=== PATIENT | female | born 1960 | race Caucasian/White ===

== ENCOUNTER → 2016-10-07 | Outpatient (CLI) | payer OTHER, MEDICAID ==
[2015-08-14 17:02] VITALS: BP 108/67
== END ==
LOC: RAD 10:36 → MERGE 10:36
PROVIDERS: ATTEND Internal Medicine
DX: Z12.31 Encounter for screening mammogram for malignant neoplasm of breast (principal)
CPT/HCPCS: 77067

== ENCOUNTER 2019-10-05 13:05 | Inpatient (IN) ==
[2019-10-05 13:15] VITALS: BMI 28.3
[2019-10-05] MEDS ORDERED: DIPRIVAN VIAL ONE (13:44)
[2019-10-05] MEDS ORDERED: DECADRON INJ ONE (13:44)
[2019-10-05] MEDS ORDERED: ZOFRAN INJ 4 MG VIAL ONE (13:44)
[2019-10-05] MEDS ORDERED: XYLOCAINE 1 % (PLAIN) ONE (13:44)
[2019-10-05] MEDS ORDERED: VERSED ONE (13:44)
[2019-10-05] MEDS ORDERED: NORCURON INJ 10 MG VIAL ONE (13:44)
[2019-10-05] MEDS ORDERED: TORADOL 30 MG VIAL IM ONE (14:58)
[2019-10-05] MEDS ORDERED: TORADOL 30 MG VIAL ONE (14:59)
[2019-10-05] MEDS ORDERED: MORPHINE SULFATE INJ 2 MG INJ IVP ONE ×2 (15:03→17:23)
[2019-10-05] MEDS ORDERED: TORADOL 30 MG VIAL IVP ONE (15:04)
[2019-10-05] MEDS ORDERED: MORPHINE SULFATE INJ 2 MG INJ ONE ×2 (15:05→17:25)
--- NOTE | 2019-10-05 15:54 | DR.EXTPAIN ---
HPI Time seen Time Seen by Provider: 10/05/19 14:57 PCP Primary Care Physician: FAM HPI Comment HPI Comment: Patient had sudden onset of pain and blood per rectum when she moved her bowels 10 hours ago. The pain continues and she feels a mass prolapsi ng through her anus. Denies any hx of hemorrhoids or rectal bleeding or pain in the past. Complaint/Symptoms Chief Complaint:: PT STATES THAT YESTERDAY WHEN SHE HAD BM SHE WIPED SHE NOTICED BRIGHT RED BLOOD. THIS MORNING SHE NOTICED THE HEMORROHOID ON THE OUTSIDE AND HAD SEVERE PAIN. Self Treatment fo Chief Complaint: TYELNOL #4 AROUND 8 THIS MORNING WITH NO RELIEF Nurses notes reviewed Nurses Notes Review: Yes Source History Provided: Patient Mode of arrival Mode of Arrival: Ambulatory Timing Onset of Chief Complaint: 10/05/19 Context History of: None Associated signs and symptoms Associated Signs and Symptoms: None PMH PMH Past Medical History: Yes Past Medical History: Hypertension and Seizures Past Medical History Comment: CHRONIC PAIN SYNDROME Past Surgical History: Yes Surgical History: Hysterectomy and Ortho Surgery Family History History of Family Medical Conditions: Yes Family Medical History: Cancer and Hypertension Social History Does patient currently use any type of tobacco product: Yes Have you used tobacco products in the last 12 months: No Type of Tobacco Use: None Does any household member use tobacco: No Alcohol Use: None Do you use any recreational Drugs:: Yes (MARIJUANA) Lives With: Family Lives Where: Home Infectious screening In the last 2 months have you had wt loss of >10#?: NO Have you had fever, night sweats or hemotysis?: No Have you traveled outside the country in the last 6 months?: No Isolation: Standard ROS Review of Systems Constitutional: No Symptoms Reported Eyes: No Symptoms Reported ENTM: No Symptoms Reported Respiratoy: No Symptoms Reported Cardiovascular: No Symptoms Reported Gastrointestinal/Abdominal: See HPI Genitourinary: No Symptoms Reported Neurological: No Symptoms Reported Musculoskeletal: No Symptoms Reported Integumentary: No Symptoms Reported Hematologic/Lymphatic: No Symptoms Reported Endocrine: No Symptoms Reported Psychiatric: No Symptoms Reported All Other Systems: Reviewed and Negative PE Vital Signs Vitals: Temperature 97.0 F Pulse Rate 72 Respiratory Rate 18 Blood Pressure [Left Arm] 175/84 Blood Pressure [Left Arm] 136/88 Blood Pressure 117/56 O2 Sat by Pulse Oximetry 100 General Limitations: No Limitations General Appearance: Alert and In No Apparent Distress Head Head Exam: Normal Inspection Eyes Eye exam: Normal Appearance ENT ENT Exam: Normal Exam Neck Neck Exam: Normal Inspection Chest Chest Inspection: Normal Inspection Respiratory Respiratory Exam: Normal Lung Sounds Bilat Cardiovascular Cardiovascular Exam: Regular Rate and Normal Rhythm Abdominal Exam Abdominal Exam: Normal Inspection, Normal Bowel Sounds, Soft and Other (1cm x 1cm exquisitely tender mass visualized prolapsed through the rectum. ); negative Distention, Tenderness, Guarding, Rebound and Rigidity Extremities Extremities Exam: Normal Inspection Back Back Exam: Normal Inspection Neurological Neurological Exam: Alert, Oriented X3 and CN II-XII Intact Psychiatric Psychiatric Exam: Normal Affect and Normal Mood Skin Skin Exam: Warm, Dry, Intact and Normal Color COURSE Treatment Treatment: Findings consistent with thrombosed hemorrhoid. Due to exquisite pain and acuteness of onset, asked surgery nutrition tech to evaluate. Analgesia given, but patient was in pain again in an hour. Discussed the case with Dr. Shah and he agreed to admit the patient for pain control and hemorrhoidectomy in AM. Reevaluation 1st: Improved ROR Labs Reviewed Laboratory: SARS-CoV-2 (PCR) Negative (NEGATIVE) 10/05/19 17:07 EKG [place]: Normal Rhythm: NSR Block: None Hypertrophy: None ST: Normal Opioid Opioid Risk Tool Total: 0 Total Score Risk Category: Low Risk Copyright: Phani BANKS predicting aberrant behaviors Diagnosis Discharge Problem: Hemorrhoid prolapse, Intractable pain
[2019-10-05] MEDS ORDERED: TYLENOL 325 MG TAB PO PRN (19:01)
[2019-10-05 19:23] LABS: BASOPHILS # (AUTO) 0.1 X10^3/uL (0.0-0.1); BASOPHILS % (AUTO) 1.1 % (0.2-1.0); EOSINOPHILS # (AUTO) 0.7 x10^3/uL (0.0-0.2); EOSINOPHILS % (AUTO) 6.9 % (0.9-2.9); HEMATOCRIT 40.9 % (36.0-47.0); HEMOGLOBIN 13.6 g/dL (12.0-16.0); LYMPHOCYTES # (AUTO) 2.2 X10^3/uL (1.3-2.9); LYMPHOCYTES % (AUTO) 22.4 % (21.0-51.0); MEAN CORPUSCULAR HEMOGLOBIN 29.6 pg (27.0-34.0); MEAN CORPUSCULAR HGB CONC 33.4 g/dL (33.0-35.0); MEAN CORPUSCULAR VOLUME 88.7 fL (80.0-100.0); MONOCYTES # (AUTO) 0.5 x10^3/uL (0.3-0.8); MONOCYTES % (AUTO) 4.7 % (0.0-13.0); NEUTROPHILS # (AUTO) 6.3 x10^3/uL (2.2-4.8); NEUTROPHILS % (AUTO) 64.9 % (42.0-75.0); PLATELET COUNT 315 X10^3/uL (150.0-450.0); RED BLOOD COUNT 4.61 X10^6/uL (3.5-5.4); RED CELL DISTRIBUTION WIDTH 13.9 % (11.6-16.5); WHITE BLOOD COUNT 9.8 X10^3/uL (3.6-10.0)
[2019-10-05 19:44] LABS: METAMYELOCYTES % 1; PLATELET MORPHOLOGY COMMENT NORMAL (NORMAL)
--- NOTE | 2019-10-05 19:44 | RAD ---
HISTORYPRE-OP: HEMORRHOIDSTUDYCHEST, 1 VIEWCOMPARISONNone availableFINDINGSThe trachea is midline. The cardiac silhouette is unremarkable . The lungs demonstrate interstitial coarsening, upper lobe predominant increased lucency and hyperexpansion which are consistent with changes associated with COPD.IMPRESSIONCOPD without acute cardiopulmonary abnormality.Electronically signed by: KEO ABDI (Oct 05, 2019 19:43:23)
[2019-10-05] MEDS ORDERED: LAMOTRIGINE 150 MG PO SCH (21:00)
[2019-10-05] MEDS ORDERED: PHENYTOIN SODIUM 100 MG PO SCH (21:00)
[2019-10-05] MEDS: DILANTIN CAP 100 MG EXT REL PO SCH (22:05)
[2019-10-05] MEDS: FLEXERIL TAB 10 MG PO SCH (22:06)
[2019-10-05] MEDS: LAMICTAL TAB 100 MG PO SCH (22:06)
[2019-10-05] MEDS: LOPRESSOR TAB 50 MG PO SCH (22:07)
[2019-10-05] MEDS ORDERED: NS 1000 ML 1,000 ML ONE (22:13)
[2019-10-05] MEDS: XANAX PO PRN (22:17)
[2019-10-05] MEDS: NEURONTIN CAP 400 MG PO SCH (22:17)
[2019-10-05] MEDS: MORPHINE SULFATE INJ 2 MG INJ IVP PRN (23:46)
[2019-10-05] MEDS ORDERED: NS 1000 ML 1,000 ML IV SCH (23:55)
[2019-10-06] MEDS: NEURONTIN CAP 400 MG PO SCH ×2 (05:16→13:46)
[2019-10-06] MEDS: MORPHINE SULFATE INJ 2 MG INJ IVP PRN (06:01)
[2019-10-06 06:17] LABS: BASOPHILS % (AUTO) 0.4 % (0.2-1.0); BLOOD UREA NITROGEN 16 mg/dL (7-18); CALCIUM 8.4 mg/dL (8.5-10.1); CARBON DIOXIDE 31.2 mmol/L (21-32); CHLORIDE 104 mmol/L (98-107); CREATININE 0.79 mg/dL (0.55-1.02); EOSINOPHILS # (AUTO) 0.6 x10^3/uL (0.0-0.2); EOSINOPHILS % (AUTO) 7.9 % (0.9-2.9); HEMATOCRIT 37.2 % (36.0-47.0); HEMOGLOBIN 12.4 g/dL (12.0-16.0); LYMPHOCYTES # (AUTO) 1.8 X10^3/uL (1.3-2.9); LYMPHOCYTES % (AUTO) 26.1 % (21.0-51.0); MEAN CORPUSCULAR HEMOGLOBIN 29.6 pg (27.0-34.0); MEAN CORPUSCULAR HGB CONC 33.3 g/dL (33.0-35.0); MEAN CORPUSCULAR VOLUME 88.8 fL (80.0-100.0); MEAN PLATELET VOLUME 7.8 fL (7.4-11.0); MONOCYTES # (AUTO) 0.5 x10^3/uL (0.3-0.8); NEUTROPHILS # (AUTO) 4.1 x10^3/uL (2.2-4.8); NEUTROPHILS % (AUTO) 58.6 % (42.0-75.0); PLATELET COUNT 283 X10^3/uL (150.0-450.0); RED BLOOD COUNT 4.19 X10^6/uL (3.5-5.4); RED CELL DISTRIBUTION WIDTH 13.9 % (11.6-16.5); SODIUM 140 mmol/L (136-145); eGFR NON BLACK RACES > 60 (>60)
[2019-10-06] MEDS ORDERED: NORVASC TAB 10 MG PO SCH (09:00)
[2019-10-06] MEDS ORDERED: HYDROCHLOROTHIAZIDE 25 MG TAB PO SCH (09:00)
[2019-10-06] MEDS ORDERED: HCTZ 25 MG PO SCH (09:00)
[2019-10-06] MEDS ORDERED: CYMBALTA PO SCH (09:00)
[2019-10-06] MEDS ORDERED: FENTANYL INJ 100 mcg ONE (10:52)
[2019-10-06] MEDS ORDERED: DECADRON INJ ONE (10:52)
[2019-10-06] MEDS ORDERED: NS 1000 ML 1,000 ML ONE ×2 (10:53→11:23)
[2019-10-06] MEDS ORDERED: BETADINE SOLN ONE (11:07)
[2019-10-06] MEDS ORDERED: XYLOCAINE 1 % (PLAIN) ONE (11:07)
[2019-10-06] MEDS ORDERED: ANCEF 1 GRAM IV PREMIX* 1 G/50 ML BAG IV ONE (11:28)
[2019-10-06] MEDS ORDERED: MARCAINE/EPINEPHRINE ONE (11:52)
[2019-10-06] MEDS ORDERED: ZOFRAN INJ 4 MG VIAL IVP PRN (12:46)
[2019-10-06] MEDS ORDERED: REGLAN INJ 10 MG VIAL IVP PRN (12:46)
[2019-10-06] MEDS ORDERED: DILAUDID INJ IVP PRN (12:46)
[2019-10-06] MEDS ORDERED: BENADRYL INJ 50 MG VIAL IVP PRN (12:46)
[2019-10-06] MEDS ORDERED: PHENERGAN INJ 25 MG IM PRN (12:46)
[2019-10-06] MEDS ORDERED: BETADINE SOLN TOP ONE (13:25)
[2019-10-06] MEDS: XANAX PO PRN (13:45)
[2019-10-06] MEDS: FLEXERIL TAB 10 MG PO SCH (13:46)
[2019-10-06] MEDS: DILANTIN CAP 100 MG EXT REL PO SCH (13:46)
[2019-10-06] MEDS: LOPRESSOR TAB 50 MG PO SCH (13:47)
[2019-10-06] MEDS: LAMICTAL TAB 100 MG PO SCH (13:47)
[2019-10-06 15:14] VITALS: BP 157/78
== END 2019-10-06 14:10 | disposition home or self-care (01) | DRG 349 ==
LOC: ER 13:08 → MED/SURG 18:17
PROVIDERS: ADMIT Surgery; ATTEND Surgery
DX: K62.89 Other specified diseases of anus and rectum; J44.9 Chronic obstructive pulmonary disease, unspecified; I10 Essential (primary) hypertension; K64.8 Other hemorrhoids; Z11.59 Encounter for screening for other viral diseases
CPT/HCPCS: 36415; 71010; 71045; 80048; 85025; 87635; 93005; 96365; 96374; 96375; 99284; A4222; J0690; J1100; J1885; J2250; J2270; J2405; J2704; J3010; J3490; J7030; S0020

== ENCOUNTER 2022-05-18 18:27 | Observation (INO) ==
[2022-05-18 18:42] VITALS: BMI 29.2
--- NOTE | 2022-05-18 18:44 | DR.EXTPAIN ---
HPI Time seen Time Seen by Provider: 05/18/22 18:44 PCP Primary Care Physician: caldwell Complaint/Symptoms Chief Complaint:: pt had a procedure done today by Dr Vaca pt's rt thigh is swollen and tight very painful 01/19 COVID-19 Coronavirus risk:travel/contact w/high risk person: No Has patient experienced Coronavirus symptoms: No Source History Provided: Patient Mode of arrival Mode of Arrival: EMS Timing Onset of Chief Complaint: 05/18/22 PMH PMH Past Medical History: Yes Past Medical History: Depression, GERD, Hypertension and Seizures Past Surgical History: Yes Surgical History: Hysterectomy and Ortho Surgery Past Surgical History Comment: atherectomy aortogram Family History History of Family Medical Conditions: Yes Family Medical History: Diabetes Mellitus, Cancer, [place], Coronary Artery Disease and Hypertension Social History Type of Tobacco Use: Cigarettes Do you use any recreational Drugs:: No Lives Where: Home Travel Risk Coronavirus risk:travel/contact w/high risk person: No Has patient experienced Coronavirus symptoms: No Infectious screening In the last 2 months have you had wt loss of >10#?: NO Have you had fever, night sweats or hemotysis?: No Have you traveled outside the country in the last 6 months?: No Isolation: Standard PE Vital Signs Vitals: Temperature 97.8 F Pulse Rate 85 Respiratory Rate 18 Blood Pressure [Left Arm] 132/70 Blood Pressure [Left Arm] 136/88 Blood Pressure 143/78 O2 Sat by Pulse Oximetry 100 ROR Labs Reviewed Result Diagrams: 05/19/22 05:33 Laboratory: WBC 9.6 X10^3/uL (3.6-10.0) 05/18/22 18:46 RBC 3.87 X10^6/uL (3.5-5.4) 05/18/22 18:46 Hgb 11.7 g/dL (12.0-16.0) L 05/18/22 18:46 Hct 34.8 % (36.0-47.0) L 05/18/22 18:46 MCV 89.9 fL (80.0-100.0) 05/18/22 18:46 MCH 30.2 pg (27.0-34.0) 05/18/22 18:46 MCHC 33.6 g/dL (33.0-35.0) 05/18/22 18:46 RDW 13.6 % (11.6-16.5) 05/18/22 18:46 Plt Count 333 X10^3/uL (150.0-450.0) 05/18/22 18:46 MPV 8.0 fL (7.4-11.0) 05/18/22 18:46 Neut % (Auto) 86.3 % (42.0-75.0) H 05/18/22 18:46 Lymph % (Auto) 10.1 % (21.0-51.0) L 05/18/22 18:46 [place] % (Auto) 3.1 % (0.0-13.0) 05/18/22 18:46 Eos % (Auto) 0.1 % (0.9-2.9) L 05/18/22 18:46 Baso % (Auto) 0.4 % (0.2-1.0) 05/18/22 18:46 Neut # (Auto) 8.3 x10^3/uL (2.2-4.8) H 05/18/22 18:46 Lymph # (Auto) 1.0 X10^3/uL (1.3-2.9) L 05/18/22 18:46 [place] # (Auto) 0.3 x10^3/uL (0.3-0.8) 05/18/22 18:46 Eos # (Auto) 0.0 x10^3/uL (0.0-0.2) 05/18/22 18:46 Baso # (Auto) 0.0 X10^3/uL (0.0-0.1) 05/18/22 18:46 Absolute Nucleated RBC 0.0 /100WBC 05/18/22 18:46 Opioid Opioid Risk Tool Age (Tony box if 16-45): No History of Preadolescent Sexual Abuse: No Total: 0 Total Score Risk Category: Low Risk Copyright: Phani BANKS predicting aberrant behaviors Discharge Plan Discharge Plan Patient Disposition: ADMITTED INPATIENT Condition: Stable Prescription drug monitoring program results: PDMP reviewed with concerns identified Orders to Discharge Patient Discharge Orders: Discharge (Routine); Ordered 05/19/22 Ordered By: Cristi Vaca
[2022-05-18 18:58] LABS: BASOPHILS % (AUTO) 0.4 % (0.2-1.0); EOSINOPHILS % (AUTO) 0.1 % (0.9-2.9); HEMATOCRIT 34.8 % (36.0-47.0); HEMOGLOBIN 11.7 g/dL (12.0-16.0); LYMPHOCYTES % (AUTO) 10.1 % (21.0-51.0); MEAN CORPUSCULAR HEMOGLOBIN 30.2 pg (27.0-34.0); MEAN CORPUSCULAR HGB CONC 33.6 g/dL (33.0-35.0); MEAN CORPUSCULAR VOLUME 89.9 fL (80.0-100.0); MONOCYTES # (AUTO) 0.3 x10^3/uL (0.3-0.8); MONOCYTES % (AUTO) 3.1 % (0.0-13.0); NEUTROPHILS # (AUTO) 8.3 x10^3/uL (2.2-4.8); NEUTROPHILS % (AUTO) 86.3 % (42.0-75.0); RED BLOOD COUNT 3.87 X10^6/uL (3.5-5.4); RED CELL DISTRIBUTION WIDTH 13.6 % (11.6-16.5); WHITE BLOOD COUNT 9.6 X10^3/uL (3.6-10.0)
[2022-05-18] MEDS ORDERED: NS 1,000 ML IV 1,000 ML ONE (19:24)
[2022-05-18] MEDS ORDERED: DILAUDID INJ ONE (22:03)
[2022-05-18] MEDS: DILAUDID INJ IVP PRN (22:11)
[2022-05-18] MEDS ORDERED: IMITREX TAB PO PRN (23:05)
[2022-05-18] MEDS ORDERED: PERCOCET TAB 5/325 MG PO PRN (23:10)
--- NOTE | 2022-05-18 23:43 | DR.H&P ---
H&P History & Physical for Day of: H&P Date: 05/18/22 Chief Complaint Chief Complaint: Pain in right thigh, acute onset the evening of admission , having had left popliteal atherectomy and drug coated balloon angioplasty via a right femoral artery stick earlier in the day. Allergies Allergies Allergy/AdvReac Type Severity Reaction Status Date / Time Penicillins Allergy Mild hives/rash Verified 12/29/21 08:31 History of Present Illness History of Present Illness: As of the chief complaint above, the patient had closure of the right femoral artery puncture with an Angioseal device. She had no problems post op until about 12 hours later when she went to the bathroom and had acute onset of swelling and burning pain in the right thigh. Past Medical History Past Medical History: CVA (history of and no custodial deficit), Depression, GERD, Hypertension, PUD and Seizures Additional Medical History: chronic pain Past Surgical History Surgical History: Cholecystectomy, Hysterectomy and Ortho Surgery Family History Family Medical History: Cancer Social History Have you used tobacco products in the last 12 months: Yes Type of Tobacco Use: Cigarettes How many years tobacco product used: 45 Alcohol Use: None Drug Use: None Medications Home Medications: Penicillins Allergy (Mild, Verified 12/29/21 08:31) hives/rash CONTINUE taking the following medications bupropion HCl 150 mg 24 hr tablet, extended release 150 mg PO QAM 05/18/22 [H istory] cyclobenzaprine 10 mg tablet 10 mg PO QPM 05/18/22 [History] diazepam 5 mg tablet 5 mg PO QDAY PRN 05/18/22 [History] duloxetine 60 mg capsule,delayed release 60 mg PO QDAY 05/18/22 [History] famotidine 40 mg tablet 40 mg PO BID 05/18/22 [History] gabapentin 600 mg tablet 600 mg PO TID 05/18/22 [History] hydrocodone 5 mg-acetaminophen 325 mg tablet 1 tab PO TID PRN 05/18/22 [History] lamotrigine 25 mg tablet 50 mg PO BID 05/18/22 [History] meloxicam 15 mg tablet 15 mg PO QDAY 05/18/22 [History] metoprolol tartrate 25 mg tablet 25 mg PO BID 05/18/22 [History] mirabegron 25 mg tablet,extended release 24 hr (Myrbetriq) 25 mg PO QDAY 05/18/22 [History] pantoprazole 40 mg tablet,delayed release 40 mg PO BID 05/18/22 [History] phenytoin sodium extended 100 mg capsule 100 mg PO QID 05/18/22 [History] rivaroxaban 2.5 mg tablet (Xarelto) 2.5 mg PO BID 05/18/22 [History] sucralfate 1 gram tablet 1 g PO BID 05/18/22 [History] sumatriptan succinate 100 mg tablet 100 mg PO DAILY PRN 05/18/22 [History] Labs Result Diagrams: 05/18/22 18:46 Labs: Laboratory WBC 9.6 X10^3/uL (3.6-10.0) 05/18/22 18:46 RBC 3.87 X10^6/uL (3.5-5.4) 05/18/22 18:46 Hgb 11.7 g/dL (12.0-16.0) L 05/18/22 18:46 Hct 34.8 % (36.0-47.0) L 05/18/22 18:46 MCV 89.9 fL (80.0-100.0) 05/18/22 18:46 MCH 30.2 pg (27.0-34.0) 05/18/22 18:46 MCHC 33.6 g/dL (33.0-35.0) 05/18/22 18:46 RDW 13.6 % (11.6-16.5) 05/18/22 18:46 Plt Count 333 X10^3/uL (150.0-450.0) 05/18/22 18:46 MPV 8.0 fL (7.4-11.0) 05/18/22 18:46 Neut % (Auto) 86.3 % (42.0-75.0) H 05/18/22 18:46 Lymph % (Auto) 10.1 % (21.0-51.0) L 05/18/22 18:46 [place] % (Auto) 3.1 % (0.0-13.0) 05/18/22 18:46 Eos % (Auto) 0.1 % (0.9-2.9) L 05/18/22 18:46 Baso % (Auto) 0.4 % (0.2-1.0) 05/18/22 18:46 Neut # (Auto) 8.3 x10^3/uL (2.2-4.8) H 05/18/22 18:46 Lymph # (Auto) 1.0 X10^3/uL (1.3-2.9) L 05/18/22 18:46 [place] # (Auto) 0.3 x10^3/uL (0.3-0.8) 05/18/22 18:46 Eos # (Auto) 0.0 x10^3/uL (0.0-0.2) 05/18/22 18:46 Baso # (Auto) 0.0 X10^3/uL (0.0-0.1) 05/18/22 18:46 Absolute Nucleated RBC 0.0 /100WBC 05/18/22 18:46 Review of Systems Constitutional: See HPI Eyes: No Symptoms Reported ENT: No Symptoms Reported Respiratory: No Symptoms Reported Cardiovascular: No Symptoms Reported Gastrointestinal: No Symptoms Reported Genitourinary: No Symptoms Reported Musculoskeletal: See HPI Skin: No Symptoms Reported Neurological: No Symptoms Reported Physical Exam Vital Signs: Temperature 97.9 F Pulse Rate [Left Brachial] 66 Pulse Rate 85 Respiratory Rate 24 Blood Pressure [Left Arm] 143/77 Blood Pressure [Left Arm] 136/88 Blood Pressure 143/78 O2 Sat by Pulse Oximetry 98 Oriented: Normal, Time, Person and Place Eyes: Normal Ear: Normal Nose: Normal Throat: Normal Respiratory: Clear Throughout Cardiovascular: Normal : Normal Auscultation: Bowel Sounds: Normal Palpation: Normal Tenderness: Normal Skin: Normal Musculoskeletal: Leg ( Tender swelling in the right groin. No fluctuance . Ultrasound carried out of the right groin. Evidence of hematoma, no AV fistula, arteries below right groin with biphasic flow. Left foot warm with biphasic flow by ultrasound of the left dorsalis pedis and posterior tibial arteries.) Psychiatric: Normal Mood Description: Calm Affect: Normal Assessment/Plan (1) Hematoma of groin: Status: Acute Plan: Admit, pain control, sequential CBCs Review H&P Reviewed: Yes Patient was examined?: Yes
[2022-05-18] MEDS ORDERED: LR 1,000 ML IV 1,000 ML IV SCH (23:45)
[2022-05-19] MEDS: DILAUDID INJ IVP PRN ×2 (02:10→07:59)
[2022-05-19] MEDS: CARAFATE PO SCH ×2 (05:35→12:16)
[2022-05-19 06:00] LABS: BASOPHILS # (AUTO) 0.2 X10^3/uL (0.0-0.1); EOSINOPHILS # (AUTO) 0.2 x10^3/uL (0.0-0.2); EOSINOPHILS % (AUTO) 1.6 % (0.9-2.9); HEMATOCRIT 27.2 % (36.0-47.0); LYMPHOCYTES # (AUTO) 2.3 X10^3/uL (1.3-2.9); LYMPHOCYTES % (AUTO) 22.8 % (21.0-51.0); MEAN CORPUSCULAR HEMOGLOBIN 30.9 pg (27.0-34.0); MEAN CORPUSCULAR HGB CONC 34.9 g/dL (33.0-35.0); MEAN CORPUSCULAR VOLUME 88.3 fL (80.0-100.0); MEAN PLATELET VOLUME 8.2 fL (7.4-11.0); MONOCYTES # (AUTO) 0.6 x10^3/uL (0.3-0.8); MONOCYTES % (AUTO) 6.2 % (0.0-13.0); NEUTROPHILS # (AUTO) 6.8 x10^3/uL (2.2-4.8); NEUTROPHILS % (AUTO) 67.4 % (42.0-75.0); RED BLOOD COUNT 3.08 X10^6/uL (3.5-5.4); RED CELL DISTRIBUTION WIDTH 13.6 % (11.6-16.5); WHITE BLOOD COUNT 10.1 X10^3/uL (3.6-10.0)
[2022-05-19] MEDS ORDERED: NEURONTIN TAB 600 MG PO SCH (06:00)
[2022-05-19 06:27] LABS: HEMOGLOBIN 9.5 g/dL (12.0-16.0)
[2022-05-19] MEDS: DILANTIN CAP 100 MG EXT REL PO SCH ×2 (08:17→12:16)
[2022-05-19] MEDS ORDERED: LAMICTAL TAB 100 MG PO SCH (09:00)
[2022-05-19] MEDS ORDERED: MOBIC TAB 15 MG PO SCH (09:00)
[2022-05-19] MEDS ORDERED: LOPRESSOR TAB 25 MG PO SCH (09:00)
[2022-05-19] MEDS ORDERED: NORVASC TAB 10 MG PO SCH (09:00)
[2022-05-19] MEDS ORDERED: XARELTO PO SCH (09:00)
[2022-05-19] MEDS ORDERED: CYMBALTA PO SCH (09:00)
[2022-05-19] MEDS ORDERED: ASPIRIN EC 81 MG PO SCH (09:00)
[2022-05-19] MEDS ORDERED: PROTONIX TAB 40 MG PO SCH (09:00)
[2022-05-19 13:30] VITALS: BP 101/53
--- NOTE | 2022-05-19 14:15 | W.DIS.FURT ---
Summary of Discharge Discharge Summary of Date Date of Exam: 05/19/22 Admission Date Date of Admission: 05/18/22 Admission Diagnosis Hospital Course: 61 year old female who underwent atherectomy and drug test coated balloon angioplasty of the left popliteal artery yesterday.She was discharged home as an outpatient. Procedure was done via the right femoral artery with an Angio seal device used to close the puncture. Approximately 10 hours after discharge she was using the bathroom and noted acute swelling of the right groin with pain. She was evaluated by me in the ER and was noted to have a hematoma of the right groin. It was not expanding. U/S showed no further leak form the right femoral artery puncture site. All arterial flow below the groin on the right side was biphasic. Left leg had been the operative leg and it was warm with biphasic arteries at the ankle . She was admitted to monitor hemoglobin and for pain control. Hgb is 9.5 this AM and the right groin is much softer and not expanding . Discharge home on her usual medications . Keep regular f/u next week. Vital Signs: Vital Signs (72 hours) 05/18/22 12:40 05/18/22 18:27 05/18/22 19:38 Temperature 97.8 F Pulse Rate 85 Pulse Rate [Left Brachial] Respiratory Rate 18 Blood Pressure 129/62 143/78 Blood Pressure [Left Arm] 132/70 O2 Sat by Pulse Oximetry 100 Oxygen Delivery Method 05/18/22 20:55 05/18/22 22:11 05/18/22 20:55 Temperature 97.9 F Pulse Rate Pulse Rate [Left Brachial] 66 Respiratory Rate 22 24 Blood Pressure Blood Pressure [Left Arm] 143/77 O2 Sat by Pulse Oximetry 98 Oxygen Delivery Method Room Air Room Air 05/18/22 22:41 05/19/22 00:00 05/19/22 02:10 Temperature 98.0 F Pulse Rate Pulse Rate [Left Brachial] 74 Respiratory Rate 20 20 20 Blood Pressure Blood Pressure [Left Arm] 140/71 O2 Sat by Pulse Oximetry 97 Oxygen Delivery Method Room Air 05/19/22 02:40 05/19/22 03:44 05/19/22 07:59 Temperature 97.8 F Pulse Rate Pulse Rate [Left Brachial] 68 Respiratory Rate 18 21 18 Blood Pressure Blood Pressure [Left Arm] 132/69 O2 Sat by Pulse Oximetry 95 Oxygen Delivery Method Room Air 05/19/22 07:00 05/19/22 08:00 05/19/22 08:29 Temperature 97.8 F Pulse Rate Pulse Rate [Left Brachial] 72 Respiratory Rate 18 18 Blood Pressure Blood Pressure [Left Arm] 128/63 O2 Sat by Pulse Oximetry 100 Oxygen Delivery Method Room Air 05/19/22 10:17 05/19/22 11:17 05/19/22 12:15 Temperature 97.7 F Pulse Rate Pulse Rate [Left Brachial] 62 Respiratory Rate 18 18 18 Blood Pressure Blood Pressure [Left Arm] 101/53 O2 Sat by Pulse Oximetry 96 Oxygen Delivery Method Labs: Laboratory Last Values WBC 10.1 X10^3/uL (3.6-10.0) H 05/19/22 05:33 RBC 3.08 X10^6/uL (3.5-5.4) L 05/19/22 05:33 Hgb 9.5 g/dL (12.0-16.0) L D 05/19/22 05:33 Hct 27.2 % (36.0-47.0) L 05/19/22 05:33 MCV 88.3 fL (80.0-100.0) 05/19/22 05:33 MCH 30.9 pg (27.0-34.0) 05/19/22 05:33 MCHC 34.9 g/dL (33.0-35.0) 05/19/22 05:33 RDW 13.6 % (11.6-16.5) 05/19/22 05:33 Plt Count 265 X10^3/uL (150.0-450.0) 05/19/22 05:33 MPV 8.2 fL (7.4-11.0) 05/19/22 05:33 Neut % (Auto) 67.4 % (42.0-75.0) 05/19/22 05:33 Lymph % (Auto) 22.8 % (21.0-51.0) 05/19/22 05:33 [place] % (Auto) 6.2 % (0.0-13.0) 05/19/22 05:33 Eos % (Auto) 1.6 % (0.9-2.9) 05/19/22 05:33 Baso % (Auto) 2.0 % (0.2-1.0) H 05/19/22 05:33 Neut # (Auto) 6.8 x10^3/uL (2.2-4.8) H 05/19/22 05:33 Lymph # (Auto) 2.3 X10^3/uL (1.3-2.9) 05/19/22 05:33 [place] # (Auto) 0.6 x10^3/uL (0.3-0.8) 05/19/22 05:33 Eos # (Auto) 0.2 x10^3/uL (0.0-0.2) 05/19/22 05:33 Baso # (Auto) 0.2 X10^3/uL (0.0-0.1) H 05/19/22 05:33 Absolute Nucleated RBC 0.0 /100WBC 05/19/22 05:33 Reason For Visit: HEMOTOMA RIGHT GROIN Discharge Date Discharge Date: 05/19/22 Discharge Diagnosis All Active Problems (Updated 05/18/22 @ 23:42 by Cristi Vaca) Hematoma of groin (Acute) Abdominal pain (Acute) Acute low back pain (Acute) Hip pain, right (Acute) Cramp in muscle (Acute) Ankle pain (Acute) back strain, sciatica (Acute) Upper respiratory infection (Acute) Contusion (Acute) Wrist contusion (Acute) Contusion, hand (Acute) Abscess of nasal cavity (Acute) Abscess or cellulitis of nose, external (Acute) Right ankle sprain (Acute) Back pain (Acute) Coccyx contusion (Acute) Back pain with sciatica (Acute) Neck pain (Acute) Hemorrhoid prolapse (Acute) Intractable pain (Acute) Cellulitis of right ankle (Acute) Laceration of ankle, right (Acute) Right ankle strain (Acute) Dehydration, mild (Acute) Nausea and vomiting in adult patient (Acute) Plan of Treatment: Continue with present treatment and follow up plan. Pt is to keep follow up appointment as instructed and take medications as ordered. Discharge Medications Discharge Medications: Penicillins Allergy (Mild, Verified 12/29/21 08:31) hives/rash CONTINUE taking the following medications bupropion HCl 150 mg 24 hr tablet, extended release 150 mg PO QAM 05/18/22 [History] cyclobenzaprine 10 mg tablet 10 mg PO QPM 05/18/22 [History] diazepam 5 mg tablet 5 mg PO QDAY PRN 05/18/22 [History] duloxetine 60 mg capsule,delayed release 60 mg PO QDAY 05/18/22 [History] famotidine 40 mg tablet 40 mg PO BID 05/18/22 [History] gabapentin 600 mg tablet 600 mg PO TID 05/18/22 [History] hydrocodone 5 mg-acetaminophen 325 mg tablet 1 tab PO TID PRN 05/18/22 [History] lamotrigine 25 mg tablet 50 mg PO BID 05/18/22 [History] meloxicam 15 mg tablet 15 mg PO QDAY 05/18/22 [History] metoprolol tartrate 25 mg tablet 25 mg PO BID 05/18/22 [History] mirabegron 25 mg tablet,extended release 24 hr (Myrbetriq) 25 mg PO QDAY 05/18/22 [History] pantoprazole 40 mg tablet,delayed release 40 mg PO BID 05/18/22 [History] phenytoin sodium extended 100 mg capsule 100 mg PO QID 05/18/22 [History] rivaroxaban 2.5 mg tablet (Xarelto) 2.5 mg PO BID 05/18/22 [History] sucralfate 1 gram tablet 1 g PO BID 05/18/22 [History] sumatriptan succinate 100 mg tablet 100 mg PO DAILY PRN 05/18/22 [History] New Prescriptions oxycodone-acetaminophen 5 mg-325 mg tablet 1 tab PO Q6H PRN #30 tabs 05/19/22 [Rx] Discharge Disposition Assessment: No acute distress noted at time of discharge. Discharge Plan Discharge Plan Hospital Course: 61 year old female who underwent atherectomy and drug test coated balloon angioplasty of the left popliteal artery yesterday.She was discharged home as an outpatient. Procedure was done via the right femoral artery with an Angio seal device used to close the puncture. Approximately 10 hours after discharge she was using the bathroom and noted acute swelling of the right groin with pain. She was evaluated by me in the ER and was noted to have a hematoma of the right groin. It was not expanding. U/S showed no further leak form the right femoral artery puncture site. All arterial flow below the groin on the right side was biphasic. Left leg had been the operative leg and it was warm with biphasic arteries at the ankle . She was admitted to monitor hemoglobin and for pain control. Hgb is 9.5 this AM and the right groin is much softer and not expanding . Discharge home on her usual medications . Keep regular f/u next week. Patient Disposition: 01 HOME, SELF-CARE Condition: Stable Health Concerns: Post Hospitalization: new medications and changes needed to prevent readmission or further decline. Pt educated and given instructions on all concerns. Care Plan Goals: Problem: Pain/Alteration in Comfort Goal: Improve/ Resolve Pain; Achieve Pain Tolerance Instructions: Take pain medications as prescribed. Contact your primary care provider if your pain is unrelieved or worsens. Follow up with primary care provider as directed. Plan of Treatment: Continue with present treatment and follow up plan. Pt is to keep follow up appointment as instructed and take medications as ordered. Assessment: No acute distress noted at time of discharge. Prescription drug monitoring program results: PDMP reviewed with concerns identified Prescriptions: New oxycodone-acetaminophen 5-325 mg Tablet 1 tab PO Q6H MDD 4 PRNQty: 30 0RF No Action cyclobenzaprine 10 mg tablet 10 mg PO QPM gabapentin 600 mg tablet 600 mg PO TID sumatriptan succinate 100 mg tablet 100 mg PO DAILY PRN hydrocodone-acetaminophen 5-325 mg tablet 1 tab PO TID PRN meloxicam 15 mg tablet 15 mg PO QDAY sucralfate 1 gram tablet 1 g PO BID famotidine 40 mg tablet 40 mg PO BID phenytoin sodium extended 100 mg capsule 100 mg PO QID lamotrigine 25 mg tablet 50 mg PO BID pantoprazole 40 mg tablet,delayed release (DR/EC) 40 mg PO BID diazepam 5 mg tablet 5 mg PO QDAY PRN bupropion HCl 150 mg tablet extended release 24 hr 150 mg PO QAM metoprolol tartrate 25 mg tablet 25 mg PO BID duloxetine 60 mg capsule,delayed release(DR/EC) 60 mg PO QDAY Myrbetriq 25 mg tablet extended release 24 hr 25 mg PO QDAY Xarelto 2.5 mg tablet 2.5 mg PO BID Orders to Discharge Patient Discharge Orders: Discharge (Routine); Ordered 05/19/22 Ordered By: Cristi Vaca Follow ups/Referrals Follow ups/Referrals: KEO SUE [Primary Care Provider] - 3 days Cristi Vaca [STAFF PHYSICIAN] - 05/26/22 2:30 pm Instructions Instructions: Bleeding Precautions When on Anticoagulant Therapy, Adult, Managing Pain Without Opioids, Health Risks of Smoking, Pain Relief Before and After Surgery, Acute Pain, Adult, Steps to Quit Smoking, Hematoma, [id number] Stand Alone Forms: Excuse From Work or School
--- NOTE | 2022-05-19 14:39 | DR.OPNOTE ---
OP NOTE Pre-Op Diagnosis: critical limb ischemia left leg. Post-Op Diagnosis: same Procedure Date Date Of Procedure: 05/18/22 Procedure: PROCEDURE: DIAGNOSTIC AORTOGRAM, DIAGNOSTIC ARTERIOGRAM LEF LEG, INTRAVASCULAR ULTRASOUND LEFT SUPERFICIAL FEMORAL AND POLITEAL ARTERIES , ATHERECTOMY AND DRUG COATED BALLOON ANGIOPLASTY OF THE LEFT POPLITEAL ARTERY NARRATIVE: The patient was taken to the operative suite and placed in the supine position. She was given intravenous sedation which was supervised by myself. Time out for the procedure obtained . The right groin and entire left leg were prepped and draped in sterile fashion. Ultrasound used to identify the right femoral artery and the skin overlying it infiltrated with 0.5% Marcaine . Ultrasound used to guide puncture of the right common femoral artery and a 0.012 inch guide wire placed. Incision made over the guide wire at the skin edge with a number 11 knife blade and a micro sheath placed over the guide wire into the right femoral artery. Small guidewire exchange for a 0.035 inch Advantage glide wire and the micro sheath exchanged for a 5 Swiss vascular sheath . Omni catheter placed over the guide wire into the aorta and diagnostic aortogram performed showing normal aorta and normal iliac arteries. Omni catheter used to steer the guide wire down the left side to the left distal external iliac artery . Omni catheter exchanged for a [place] catheter and sequential arteriogr ams carried out of the left leg suggesting popliteal stenosis of the proximal left popliteal artery . Patient given 5000 unit of intravenous heparin. The 5 Fr sheath in the right groin exchanged for a 7 Fr destination sheath which was parked in the proximal left superficial femoral artery. [place] catheter and 0.035 inch wire used to traverse the area of stenosis of the left popliteal artery and placed in the left posterior tibial artery as selective catherization .We exchanged the 0.035 inch wire for a 0.014 inch wire. Intravascular ultrasound probe placed over this guidewire and intravascular ultrasound. performed and it showed 58 % stenosis of the left popliteal artery. Over the 0.014 inch wire we placed the [employer] Stream atherectomy device and performed atherectomy of the distal left popliteal artery . This was removed and the target vessel balloon dilated with a 5 mm x150 mm [employer]ards drug-coated balloon. Post procedure arteriogram showed excellent result. Wires and devices removed from the sheath . The destination sheath backed up into the aorta and a 0.035 inch wire was placed. The destination sheath exchanged over the wire with an Angioseal device which was used to close the puncture of the right femoral artery . Patient taken to [facility] in good condition. Type of Anesthesia: Local (0.5% Marcaine ) Anesthesia Comment: plus MAC Findings: 58 % stenosis left popliteal artery Type of Fluids Used:: Lactated Ringers Total Amount of Fluid Infused:: 1100 cc EBL: 75 cc Complications:: none Needle/Sponge Count:: correct Disposition/Condition: Pt. tolerated procedure without difficulty. Taken to [facility] in stable condition.
[2022-05-19] MEDS ORDERED: FLEXERIL TAB 10 MG PO SCH (21:00)
== END 2022-05-19 13:55 | disposition home or self-care (01) ==
LOC: ER 18:27 → INTOOBSV 19:41 → MED/SURG 19:41
PROVIDERS: ADMIT Surgery; ATTEND Surgery
DX: L76.32 Postprocedural hematoma of skin and subcutaneous tissue following other procedure; K21.9 Gastro-esophageal reflux disease without esophagitis; Z98.890 Other specified postprocedural states; R60.0 Localized edema; I10 Essential (primary) hypertension; F32.89 Other specified depressive episodes